=== PATIENT | female | born 1955 | race African-American/Black ===

== ENCOUNTER 2019-11-29 09:52 | Outpatient (CLI) | payer MEDICARE, OTHER ==
[~2019-11-29] VITALS: Ht 172.7 cm; Wt 57.2 kg
[2019-11-29 14:18] VITALS: BP 139/84
--- NOTE | 2019-11-29 16:14 | Consultation ---
DATE OF CONSULTATION: 11/29/2019 GASTROENTEROLOGY CONSULTATION CONSULTING PHYSICIAN: Demetri Paige MD. REFERRING PHYSICIAN: Keegan Donovan MD. CHIEF COMPLAINT: Diarrhea, weight loss, abdominal pain, nausea, vomiting. HISTORY OF PRESENT ILLNESS: This is a very complicated 64-year-old female with numerous medical problems, which I will dictate in a second. She has diagnosis of celiac, but I am not sure how she was diagnosed, IBS, hepatitis C, but she states it is not active. Apparently, she has been losing a lot of weight and was referred to us for evaluation of weight loss. PAST MEDICAL HISTORY: 1. H. pylori positive gastritis. 2. Spondylosis. 3. Arthritis. 4. IBS. 5. Questionable celiac disease. 6. Questionable hepatitis C. 7. COPD, on home oxygen 2 liters. 8. Depression. PAST SURGICAL HISTORY: Rotator cuff on the right, carpal tunnel on the left, knee surgery on the left. MEDICATIONS: She is on multiple inhalers and other medications. Please refer to medication reconciliation list. FAMILY HISTORY: Father had throat cancer. Mother had lung cancer. SOCIAL HISTORY: The patient occasionally drinks, occasionally smokes. Denies any IV drug abuse. ALLERGIES: Latex, sulfa, Rocephin. REVIEW OF SYSTEMS: Positive for abdominal pain, diarrhea, nausea, vomiting, bloating, weight loss. PHYSICAL EXAMINATION: VITAL SIGNS: Temperature 97.6, blood pressure 139/84, pulse 69, respirations 20. HEENT: Normocephalic and atraumatic. Sclerae anicteric. NECK: Supple. No evidence of obvious lymphadenopathy. CARDIOVASCULAR: Regular rate and rhythm. Plus S1, S2. LUNGS: Clear to auscultation bilaterally. ABDOMEN: Positive bowel sounds. Soft, nontender. No rebound. No guarding. No peritoneal sign. EXTREMITIES: No cyanosis, no clubbing, no edema. ASSESSMENT: Problem List: 1. Weight loss. 2. History of H. pylori gastritis without completion of the treatment. 3. IBS. 4. Questionable hepatitis C. 5. Questionable celiac disease. PLAN: The patient will need endoscopy and colonoscopy for evaluation of weight loss. We also ordered the laboratory tests today including celiac panel, hepatitis C quant and the rest of the labs including tumor markers and thyroid panel. The patient will be scheduled for endoscopy and colonoscopy. After above, we are going to resume and re-evaluate for cause of weight loss. I want to thank Dr. Keegan Donovan for this kind referral. Demetri Paige M.D. DR: APRIL JOB#: [id number] CC: Keegan Donovan M.D.; Fax#: [phone]
[2019-12-05] MEDS ORDERED: KLONOPIN0.5 MG ORAL (09:22)
[2019-12-05] MEDS ORDERED: GABAPENTIN400 MG ORAL (09:22)
[2019-12-05] MEDS ORDERED: WIXELA 500-501 EACH IH (09:22)
[2019-12-05] MEDS ORDERED: PROAIR HFA8.5 GM INH (09:22)
[2019-12-05] MEDS ORDERED: ROXICODONE15 MG ORAL (09:22)
== END 2019-11-29 11:52 | disposition home or self-care (01) ==
LOC: PAN 09:52
DX: R19.7 Diarrhea, unspecified (principal); R63.4 Abnormal weight loss; R10.9 Unspecified abdominal pain; R11.2 Nausea with vomiting, unspecified; M19.90 Unspecified osteoarthritis, unspecified site; J44.9 Chronic obstructive pulmonary disease, unspecified; Z99.81 Dependence on supplemental oxygen; F32.9 Major depressive disorder, single episode, unspecified; K58.9 Irritable bowel syndrome, unspecified; Z86.19 Personal history of other infectious and parasitic diseases; Z88.2 Allergy status to sulfonamides; Z91.040 Latex allergy status; R14.0 Abdominal distension (gaseous)
CPT/HCPCS: G0463

== ENCOUNTER 2020-02-09 11:59 | Outpatient (CLI) | payer MEDICARE, OTHER ==
[~2020-02-09 11:59] MED LIST: GABAPENTIN400 MG ORAL; KLONOPIN0.5 MG ORAL; PROAIR HFA8.5 GM INH; ROXICODONE15 MG ORAL; WIXELA 500-501 EACH IH
== END 2020-02-09 13:59 | disposition home or self-care (01) ==
LOC: PAN 11:59
DX: R10.9 Unspecified abdominal pain (principal)
CPT/HCPCS: 99212

== ENCOUNTER → 2020-02-10 | Outpatient (CLI) | payer MEDICARE, OTHER ==
--- NOTE | 2020-02-10 15:05 | General Progress Note ---
Subjective ROS Limited/Unobtainable: Yes Allergies: Coded Allergies: CEFTRIAXONE (Verified Allergy, Severe, cardiac arrest, 12/01/19) FUROSEMIDE (Verified Allergy, Severe, hives, 12/01/19) LATEX, NATURAL RUBBER (Verified Allergy, Severe, anaphylatic shock, 12/01/19) SULFA (SULFONAMIDE ANTIBIOTICS) (Verified Allergy, Unknown, 11/29/19) Objective General Appearance: alert EENT: normal ENT inspection Neck: supple Cardiovascular: normal rate Respiratory/Chest: decreased breath sounds Abdomen: normal bowel sounds, non tender, soft Extremities: non-tender Assessment/Plan Assessment/Plan: HP positive gastritis hep c poor colon prep hemorrhoids no tolerance to triple therapy for HP try tilicia abd us hep C genotype repeat colon soon Demetri Paige MD Feb 10, 2020 15:05
--- NOTE | 2020-02-10 15:54 | Diagnostic Imaging Report ---
ABDOMINAL ULTRASOUND - COMPLETE INDICATION: Abdominal pain. TECHNIQUE: Multiplanar ultrasound examination of the abdomen with greyscale and doppler imaging. COMPARISON: None FINDINGS: Liver: The liver is normal in size and coarsened echotexture. No focal abnormalities are noted. Gallbladder: The gallbladder is normal. No stones are visualized. The wall is not thickened. There is no sonographic Joy sign. Common bile duct: Normal in size. Pancreas: The visualized portion of pancreas is normal in echogenicity. There are no masses. Kidneys: The kidneys are normal in size and echogenicity. There is no hydronephrosis. Spleen: The spleen is normal in size and echogenicity. Aorta: The proximal aorta is unremarkable. Distal aorta isn't secured by bowel gas. IMPRESSION: Coarsened echotexture of the liver, which is nonspecific. Correlation with LFTs is recommended.
== END | disposition home or self-care (01) ==
LOC: ULS 11:44
DX: K29.70 Gastritis, unspecified, without bleeding (principal); B96.81 Helicobacter pylori [H. pylori] as the cause of diseases classified elsewhere; K64.9 Unspecified hemorrhoids; B19.20 Unspecified viral hepatitis C without hepatic coma; Z88.2 Allergy status to sulfonamides; Z88.8 Allergy status to other drugs, medicaments and biological substances; Z91.040 Latex allergy status
CPT/HCPCS: 76700

== ENCOUNTER 2020-03-13 10:52 | Outpatient (CLI) | payer MEDICARE, OTHER ==
[2020-03-13 11:13] VITALS: BP 115/75
[2020-03-13 11:21] VITALS: BP 127/79
--- NOTE | 2020-03-13 11:22 | General Progress Note ---
Subjective ROS Limited/Unobtainable: Yes Allergies: Coded Allergies: CEFTRIAXONE (Verified Allergy, Severe, cardiac arrest, 12/01/19) FUROSEMIDE (Verified Allergy, Severe, hives, 12/01/19) LATEX, NATURAL RUBBER (Verified Allergy, Severe, anaphylatic shock, 12/01/19) SULFA (SULFONAMIDE ANTIBIOTICS) (Verified Allergy, Unknown, 11/29/19) Objective Last 24 Hour Vital Signs Date Time Temp Pulse Resp B/P (MAP) Pulse Ox O2 Delivery O2 Flow Rate FiO2 03/13/20 11:13 97.5 81 16 115/75 99 General Appearance: alert EENT: PERRL/EOMI Neck: supple Cardiovascular: normal rate Respiratory/Chest: lungs clear Abdomen: normal bowel sounds, non tender, soft Extremities: non-tender Assessment/Plan Assessment/Plan: Assessment/Plan Assessment/Plan: HP positive gastritis hep c poor colon prep hemorrhoids no tolerance to triple therapy for HP try tilicia>> patint wants to wait until after her back surg abd us hep C genotype>>> pending plan hep C treatment after her back surg repeat colon soon Demetri Paige MD Mar 13, 2020 11:22
[2020-03-13] MEDS ORDERED: PROTONIX40 MG ORAL (11:23)
== END 2020-03-13 12:52 | disposition home or self-care (01) ==
LOC: PAN 10:52
DX: K29.70 Gastritis, unspecified, without bleeding (principal); B96.81 Helicobacter pylori [H. pylori] as the cause of diseases classified elsewhere; B19.20 Unspecified viral hepatitis C without hepatic coma; K64.9 Unspecified hemorrhoids; Z88.2 Allergy status to sulfonamides; Z88.8 Allergy status to other drugs, medicaments and biological substances; Z91.040 Latex allergy status
CPT/HCPCS: 99212

== ENCOUNTER 2020-07-12 12:56 | Outpatient (CLI) | payer MEDICARE, OTHER ==
[~2020-07-12 12:56] MED LIST changes: +PROTONIX40 MG ORAL
--- NOTE | 2020-07-12 16:45 | General Progress Note ---
Subjective ROS Limited/Unobtainable: Yes Allergies: Coded Allergies: CEFTRIAXONE (Verified Allergy, Severe, cardiac arrest, 12/01/19) FUROSEMIDE (Verified Allergy, Severe, hives, 12/01/19) LATEX, NATURAL RUBBER (Verified Allergy, Severe, anaphylatic shock, 12/01/19) SULFA (SULFONAMIDE ANTIBIOTICS) (Verified Allergy, Unknown, 11/29/19) Objective General Appearance: alert EENT: normal ENT inspection Neck: supple Cardiovascular: normal rate Respiratory/Chest: lungs clear Abdomen: normal bowel sounds, non tender, soft Extremities: non-tender Assessment/Plan Assessment/Plan: Assessment/Plan Assessment/Plan: HP positive gastritis hep c poor colon prep hemorrhoids s/p tilicia abd us reviewed hep C genotype>>> 1 b>>> start [facility] repeat colon soon Demetri Paige MD Jul 12, 2020 16:45
== END 2020-07-12 14:56 | disposition home or self-care (01) ==
LOC: PAN 12:56
DX: K29.70 Gastritis, unspecified, without bleeding (principal); B96.81 Helicobacter pylori [H. pylori] as the cause of diseases classified elsewhere; B19.20 Unspecified viral hepatitis C without hepatic coma; K64.9 Unspecified hemorrhoids
CPT/HCPCS: 99212